=== PATIENT | female | born 1985 | race Caucasian/White ===

== ENCOUNTER 2020-08-04 15:11 | Emergency (ER) | payer BC, OTHER ==
[~2020-08-04] VITALS: Ht 180.3 cm; Wt 68.0 kg
[2020-08-04 15:11] VITALS: BP 114/78
--- NOTE | 2020-08-04 15:41 | PHYS DOC ---
Adult General Chief Complaint Chief Complaint: FLANK PAIN HPI HPI Patient is a 34-year-old female presents emergency department reporting that at approximately 7:00 last night she had a sudden onset of right-sided flank pain and back pain that she describes as worse than being in labor. Patient denies a ny burning or pressure with urination, denies vaginal discharge, denies STI concerns. Patient denies nausea, vomiting, diarrhea at this time, patient states that she did have some nausea when the pain was was as it was worst yesterday between 7 PM and midnight which she rated her pain a 10/10 on a 1-10 pain scale. Patient states that her pain is currently a 6/10 on a 1-10 pain sc marcie. Patient denies constipation, diarrhea, abdominal pain, chest pain, chest congestion, chest palpitations, recent fever or chills. Patient denies any injury to her back. Patient denies any other physical complaints or physical symptoms. Review of Systems Review of Systems 14 body systems of review of systems have been reviewed. See HPI for pertinent positives and negative responses, otherwise all other systems are negative, nonpertinent or noncontributory. Allergies Allergies Allergies Coded Allergies Type Severity Reaction Last Updated Verified erythromycin base Allergy Unknown 07/20/14 Yes Physical Exam Physical Exam Constitutional: Well developed, well nourished, no acute distress, non-toxic appearance. HENT: Normocephalic, atraumatic, bilateral external ears normal, oropharynx moist, no oral exudates, nose normal. Eyes: PERRLA, EOMI, conjunctiva normal, no discharge. Neck: Normal range of motion, no tenderness, supple, no stridor. Cardiovascular:Heart rate regular rhythm, no murmur Lungs & Thorax: Bilateral breath sounds clear to auscultation Abdomen: Bowel sounds normal, soft, no tenderness, no masses, no pulsatile masses. Skin: Warm, dry, no erythema, no rash. Back: No midline spinal tenderness, no left-sided CVA tenderness, positive right-sided CVA tenderness. Extremities: No tenderness, no cyanosis, no clubbing, ROM intact, no edema. Neurologic: Alert and oriented X 3, normal motor function, normal sensory function, no focal deficits noted. Psychologic: Affect normal, judgement normal, mood normal. EKG EKG [] Radiology/Procedures Radiology/Procedures [] Heart Score C/O Chest Pain: No Risk Factors: Risk Factors: DM, Current or recent (<one month) smoker, HTN, HLP, family history of CAD, obesity. Risk Scores: Risk Factors: DM, Current or recent (<one month) smoker, HTN, HLP, family history of CAD, obesity. Course & Med Decision Making Course & Med Decision Making Pertinent Labs and Imaging studies reviewed. (See chart for details) 34-year-old female, vital signs reviewed, presents to the ER concerning for right flank pain. Physical examination and presentation of chief complaint was consistent with kidney stone, patient UA was obtained and showed mild blood otherwise did not show signs of infection, a CT to rule out kidney stone was ordered. Patient was given 30 mg Toradol IV with 1 l normal saline and 4 mg IV Zofran. Upon reexamination of the patient, patient is now pain-free stating that the pain medication turned my pain off like a light switch. CT abdomen pelvis did not show a stone, patient's presentation classic for kidney stone, most likely patient has passed her kidney stone. CT did show 3 mm cyst right adnexal region, patient states she is aware of this and has no lower pelvic pain, stating that this cyst does give her problems from time to time. CT did also show large amount of stool in colon, will treat with magnesium citrate and diagnosed with constipation. Patient gave verbal understanding discharge home instructions, follow-up with primary care, return ER precautions or concerns, magnesium citrate use, was discharged home without incident. Dragon Disclaimer Dragon Disclaimer This electronic medical record was generated, in whole or in part, using a voice recognition dictation system. Departure Departure: Impression: Primary Impression: Kidney stone on right side Additional Impressions: Constipation Abdominal pain Disposition: 01 DC HOME SELF CARE/HOMELESS Condition: GOOD Referrals: KIAN LINDA MD (PCP) Patient Instructions: Constipation, Adult, Kidney Stones Additional Instructions: Please drink half of the magnesium citrate now, and half in 12 hours, you should expect some abdominal cramping until stool results happen. Please see your doctor for ongoing abdominal aches and pains, return to the emergency department for worsening symptoms or other concerns. EMERGENCY DEPARTMENT GENERAL DISCHARGE INSTRUCTIONS Thank you for coming to [facility] (ED) today and trusting us with you care. We trust that you had a positivie experience in our Emergency Department. If you wish to speak to the department management, you may call the director at [phone]. YOUR FOLLOW UP INSTRUCTIONS ARE FOLLOWS: 1. Do you have a private Doctor? If you do not have a private doctor, please ask for a resource list of physicians or clinics that may be able to assist you with follow up care. 2. The Emergency Physician has interpreted your x-rays. The X-Ray specialist will also review them. If there is a change in the findings, you will be notified in 48 hours when at all possible. 3. A lab test or culture has been done, your results will be reviewed and you will be notified if you need a change in treatment. ADDITIONAL INSTRUCTIONS AND INFORMATION: 1. Your care today has been supervised by a physician who is specially trained in emergency care. Many problems require more than one evaluation for a complete diagnosis and treatment. We recommend that you schedule your follow up appointment as recommended to ensure complete treatment of you illness or injury. If you are unable to obtain follow up care and continue to have a problem, or if your condition worsens, we recommend that you return to the ED. 2. We are not able to safely determine your condition over the phone nor are we able to give sound medical advice over the phone. For these safety reasons, if you call for medical advice we will ask you to come to the ED for further evaluation. 3. If you have any questions regarding these discharge instructions please call the ED at [phone]. SAFETY INFORMATION: In the interest of safety, wellness, and injury prevention; we encourage you to wear your sealbelt, if you smoke; quite smoking, and we encourage family to use a pro tective helmet for bicycling and other sporting events that present an increased risk for head injury. IF YOUR SYMPTOMS WORSEN OR NEW SYMPTOMS DEVELOP, OR YOU HAVE CONCERNS ABOUT YOUR CONDITION; OR IF YOUR CONDITION WORSENS WHILE YOU ARE WAITING FOR YOUR FOLLOW UP APPOINTMENT; EITHER CONTACT YOUR PRIMARY CARE DOCTOR, THE PHYSICIAN WHOSE NAME AND NUMBER YOU WERE GIVEN, OR RETURN TO THE ED IMMEDIATELY. Problem Qualifiers Additional Impressions: Constipation Constipation type: unspecified constipation type Qualified Codes: K59.00 - Constipation, unspecified Abdominal pain Abdominal location: unspecified location Qualified Codes: R10.9 - Unspecified abdominal pain ALPHONSO JAY APRN Aug 04, 2020 15:41
[2020-08-04] MEDS ORDERED: ONDANSETRON PF 4 MG/2 ML VIAL. IVP ONE (15:45)
[2020-08-04] MEDS ORDERED: IV NORMAL SALINE 1,000ML 1,000 ML IV ONE (15:45)
[2020-08-04] MEDS ORDERED: KETOROLAC 30 MG/ML VIAL. IVP ONE (15:45)
[2020-08-04 16:11] LABS: BILIRUBIN,URINE NEG (NEG); CLARITY,URINE CLEAR; COLOR,URINE YELLOW; GLUCOSE,URINE NEG (NEG)
[2020-08-04 16:12] LABS: BACTERIA,URINE 0 /HPF (0-FEW); NITRITE,URINE NEG (NEG); UROBILINOGEN,URINE 0.2 mg/dL (0.2 mg/dL); WBC,URINE 0 /HPF (0-4)
--- NOTE | 2020-08-04 16:49 | RAD ---
EXAM: CT Abdomen and Pelvis without IV contrast CLINICAL HISTORY: Right flank pain COMPARISON: 07/20/2014 TECHNIQUE: Helical CT of the abdomen and pelvis without intravenous contrast. Axial, coronal and sagi ttal reformatted images were generated. PQRS compliance statement - One or more of the following individualized dose reduction techniques wer e utilized for this study: 1. Automated exposure control 2. Adjustment of the mA and/or kV according to patient size 3. Use of iterative reconstruction technique FINDINGS: Lack of intravenous contrast limits evaluation of solid organs, vasculature, and lymph nodes. Lower chest: Lung bases are clear. Abdomen and Pelvis: No focal liver lesion. Gallbladder is normal. No biliary ductal dilatation. Pancreas is unremarkable. Spleen is normal in appearance. Adrenal glands are unremarkable. No focal renal lesion. No renal tra ct calculus. No hydronephrosis. No hydroureter. Bladder is unremarkable. Moderate to large volume colonic stool content is seen. Appendix is normal. No small or large bowel d ilatation. No bowel obstruction. No abdominal pelvic lymphadenopathy. Aorta is normal in caliber. No abdominal or pelvic ascites. No abdominal or pelvic lymphadenopathy. Right adnexal cyst measures 3 cm. Bones: No aggressive osseous lesion is seen IMPRESSION: 1. No renal tract calculus. 2. Appendix is normal. 3. Moderate to large volume colonic stool content. No bowel obstruction. 4. Right adnexal cyst measures 3 cm. This can be further assessed by ultrasound. Electronically signed by: German Milton MD (08/04/2020 4:47 PM) [facility]
[2020-08-04] MEDS ORDERED: MAGNESIUM CITRATE 296 ML SOLUTION. PO ONE (17:30)
== END 2020-08-04 17:40 | disposition home or self-care (01) ==
LOC: ER 15:11
DX: N20.0 Calculus of kidney (principal); K59.00 Constipation, unspecified; R10.9 Unspecified abdominal pain; Z88.1 Allergy status to other antibiotic agents
CPT/HCPCS: 74176; 81001; 81025; 96361; 96374; 96375; 99284; J1885; J2405; J7030